=== PATIENT | male | born 1955 | race Caucasian/White ===

== ENCOUNTER → 2024-04-02 | Outpatient (CLI) | payer MEDICARE ==
--- NOTE | 2024-04-02 08:54 | CTL ---
EXAMINATION TYPE: CT Low Dose Lung DATE OF EXAM: 04/02/2024 8:42 AM COMPARISON: None. CLINICAL INDICATION: Male, 68 years old with history of Z12.2 LUNG CA SCR F17.210 FORMER SMOKER; Form er smoker., history of tobacco use. TECHNIQUE: Multiple axial non-contrast scans were obtained from approximately the lung apices through the upper abdomen. Coronal and sagittal reformatted images were obtained. Low dose technique was uti lized. MIP were created on a separate workstation and submitted for review. CT DLP: 96.5 mGycm, Automated exposure control for dose reduction was used. CT Contrast: Contrast used: None Oral contrast used: None FINDINGS: Lack of intravenous contrast and low dose technique limits the evaluation of the vascular and soft ti ssue structures. LUNGS: No evidence of pulmonary fibrosis. No evidence of focal consolidation, pneumothorax or pleural effusion. Centrilobular emphysema changes. Nodules: RUL: None. RML: None. RLL: None. CONNER: None. LLL: 5 mm series 5 image 32 possibly representing scarring or calcified granuloma. AIRWAY: Patent and unremarkable. HEART: Size within normal limits.Atherosclerosis of the arterial vasculature. MEDIASTINUM: No gross evidence of adenopathy. Partially calcified lymph node in the right suprahilar region. VASCULATURE: No aortic aneurysm. MUSCULOSKELETAL: No acute osseous abnormalities SOFT TISSUES/LYMPH NODES: Unremarkable. LOWER NECK: No significant findings. UPPER ABDOMEN: Calcified granulomas in the spleen and liver. IMPRESSION: 1. No clinically significant pulmonary nodules. 2. Mild to moderate emphysema. CT LUNG RAD AND CT CHEST RECOMMENDATION: Lung-Rad 2 Benign Appearance or Behavior: Continue annual sc reening with LDCT in 12 months. S Modifier (other clinically significant findings): None Recommend smoking cessation (if current smoker), or continuation of smoking cessation (if prior smoke r). Annual screening for lung cancer with low-dose computed tomography is recommended in adults ages 55 to 77 years who have a 30 pack-year smoking history and currently smoke or have quit within the pa st 15 years. Screening should be discontinued once a person has not smoked for 15 years or develops a health problem that substantially limits life expectancy or the ability or willingness to have curat booker lung surgery. Lung rads 2021 [email or web address] [facility], , 04/02/2024 8:52 AM
== END | disposition home or self-care (01) ==
LOC: RADCTMAIN 08:13
PROVIDERS: ATTEND Emergency Medicine
DX: Z12.2 Encounter for screening for malignant neoplasm of respiratory organs (principal); J43.2 Centrilobular emphysema; F17.210 Nicotine dependence, cigarettes, uncomplicated
CPT/HCPCS: 71271

== ENCOUNTER → 2024-07-17 | Outpatient (CLI) | payer MEDICARE ==
--- NOTE | 2024-07-18 08:13 | PE ---
EXAMINATION TYPE: PET CT fusion skull to thigh DATE OF EXAM: 07/17/2024 CLINICAL HISTORY: Prostate cancer. TECHNIQUE: Following the intravenous administration of 5.97 mCi of Ga-68 PSMA Illucix, whole body i mages are performed from the top of the skull to the midthigh. Images are reviewed on the computer i n the coronal, axial, and sagittal planes. Reconstructed rotating images are created on independent workstation and reviewed on the computer. A non-contrast CT is performed in conjunction with the PE T scan. COMPARISON: None. FINDINGS: HEAD AND NECK: No suspicious radiotracer uptake. CHEST, MEDIASTINUM, AND HILAR REGION: No suspicious radiotracer uptake. ABDOMEN AND PELVIS: Prostate gland is normal in size. Increased radiotracer uptake in the prostate gl and involving the left aspect is noted. No definitive additional areas of abnormal radiotracer uptake identified. OSSEOUS STRUCTURES: No definitive areas of abnormal radiotracer uptake. OTHER CT: Bilateral aphakia is present. Moderate calcified plaque bilateral carotid bulb level is see n. Mild to moderate underlying emphysematous change is present greatest in the upper lungs. There is severe three-vessel coronary artery calcification and/or stents. Bilateral subareolar gynecomastia is noted. Multiple round calcifications throughout the spleen are seen. A few calcifications throughout the gricel er are present. Findings are consistent with product of old granulomatous disease. Sigmoid colonic di verticula are identified. There is disc space narrowing and facet arthropathy in the lower lumbar spi ne. IMPRESSION: Increased radiotracer uptake left aspect of the prostate gland is suspicious and should b e correlated with prostate MRI and/or biopsy results. No suspicious adenopathy or metastatic disease seen. [facility], , 07/18/2024 8:11 AM
== END | disposition home or self-care (01) ==
LOC: RADPETMAIN 10:09
PROVIDERS: ATTEND Urology
DX: C61 Malignant neoplasm of prostate (principal)
CPT/HCPCS: 78815; A9587

== ENCOUNTER → 2024-08-11 | Outpatient (CLI) | payer MEDICARE ==
[2024-08-11 18:18] LABS: Basophils # (A) 0.06 X 10*3/uL (0.00-0.10); Basophils % (A) 0.7 %; Eosinophils # (A) 0.09 X 10*3/uL (0.04-0.35); Eosinophils % (A) 1.1 %; HCT 39.5 % (39.6-50.0); HGB 13.2 g/dL (13.0-17.0); Lymphocytes # (A) 1.67 X 10*3/uL (0.90-5.00); Lymphocytes % (A) 20.4 %; MCH 33.7 pg (27.0-32.0); MCHC 33.4 g/dL (32.0-37.0); MCV 100.8 FL (80.0-97.0); Mean Platelet Volume 8.9 FL (9.5-12.2); Monocytes # (A) 1.34 X 10*3/uL (0.20-1.00); Monocytes % (A) 16.4 %; NRBC Per 100 WBC 0 X 10*3/uL (0.00-0.01); Neutrophils # (A) 4.98 X 10*3/uL (1.80-7.70); Neutrophils % (A) 60.8 %; Platelet Count 248 X 10*3/uL (140-440); RBC 3.92 X 10*6/uL (4.40-5.60); RDW 13.9 % (11.5-14.5); WBC 8.19 X 10*3/uL (4.50-10.00)
[2024-08-11 22:18] LABS: Appearance,Urine Clear (Clear); Bilirubin,Urine Small (Negative); Blood,Urine Negative (Negative); Color,Urine Dark Yellow (Yellow); Ketones,Urine Trace (Negative); Nitrite,Urine Negative (Negative); PH, Urine 6.5; Specific Gravity,Urine 1.018 (1.001-1.030); Urobilinogen,Urine 0.2 E.U./DL
[2024-08-11 23:31] LABS: BUN/Creat Ratio 9.45 Ratio (12.00-20.00); Blood Urea Nitrogen 10.4 mg/dL (9.0-27.0); Carbon Dioxide 24.5 mmol/L (21.6-31.8); Chloride 100 mmol/L (96-109); Glucose 92 mg/dL (70-110); Potassium 4.6 mmol/L (3.5-5.5); Sodium 137 mmol/L (135-145)
== END | disposition home or self-care (01) ==
LOC: LABPAT 13:57
PROVIDERS: ATTEND Urology
DX: Z01.812 Encounter for preprocedural laboratory examination (principal); C61 Malignant neoplasm of prostate
CPT/HCPCS: 36415; 80048; 81003; 85025; 86850; 86900; 86901; 87086

== ENCOUNTER 2024-08-20 09:41 | Day surgery (SDC) | payer MEDICARE ==
--- NOTE | 2024-08-20 07:31 | P.HPIHPCON ---
History of Present Illness H&P Date: 08/20/24 Chief Complaint: Prostate cancer This is a 68-year-old male with history of [place] 8 prostate cancer. Option of radiation therapy versus robotic radical prostatectomy was discussed with him in detail. He agreed to proceed with robotic radical prostatectomy. He is aware o f the risk which include but not limited to bleeding, infection, urinary incontinence, erectile dysfunction. Injury of nearby organs was also discussed. Risk of cancer recurrence and the need for additional treatments was discussed. He understood all the risk and agreed to proceed Consent for Procedure: I have explained the operation/procedure to the patient, including the risks, benefits, side effects, alternative therapies (including not receiving the proposed treatment or service), the likelihood of the patient achieving his/her goals, and potential recuperation problems for the procedure/sedation/analgesia, as well as any blood products, if indicated. I also explained to the patient the risks, benefits and side effects of the alternatives, as well as the risks related to not receiving the proposed procedure, care, treatment, or services. Past Medical History Past Medical History: Hypertension, Prostate Disorder Additional Past Medical History / Comment(s): shingles 2023, prostate cancer History of Any Multi-Drug Resistant Organisms: None Reported Additional Past Surgical History / Comment(s): prostate biospy July 2024, Lt. hand trigger finger surgery, colonoscopy Past Anesthesia/Blood Transfusion Reactions: No Reported Reaction Smoking Status: Former smoker - Past Family History Mother Additional Family Medical History / Comment(s): emphysema Father Family Medical History: Cancer Additional Family Medical History / Comment(s): throat cancer Sister(s) Family Medical History: Cancer Additional Family Medical History / Comment(s): liver cancer Medications and Allergies Home Medications Medication Instructions Recorded Confirmed Type Acetaminophen Tab [Tylenol Tab] 500 mg PO Q6H 08/18/24 08/18/24 History Losartan Potassium 1 tab PO DAILY 08/18/24 08/18/24 History Multivitamin [Multivitamins Adult 1 tab PO DAILY 08/18/24 08/18/24 History Gummies] Allergies Allergy/AdvReac Type Severity Reaction Status Date / Time No Known Allergies Allergy Verified 08/18/24 08:57 Surgical - Exam - General no distress, no pain - Eyes normal ocular movement, no pale - ENT normal nares, normal mucosa - Respiratory normal expansion, normal respiratory effort - Abdomen Abdomen: soft, non tender, no distended - Psychiatric oriented to time, oriented to person, oriented to place Assessment and Plan Assessment: OR for robotic radical prostatectomy with bilateral pelvic lymph node dissection
[2024-08-20] MEDS ORDERED: LIDOCAINE 1% (10MG/ML) FOR IV START INTRADERMA PRN (10:20)
[2024-08-20] MEDS ORDERED: HYDROmorphone 0.5 MG/0.5 ML SYRINGE IVP PRN (10:20)
[2024-08-20] MEDS: IV FLUID CONTINUATION 1,000 ML IV ONE ×4 (10:30)
[2024-08-20] MEDS: LACTATED RINGERS 1,000 ML IV SCH (11:10)
[2024-08-20] MEDS: DEXAMETHASONE SOD PHOSPHATE 4 MG/ML 1 ML VIAL IV ONE (11:12)
[2024-08-20] MEDS: ONDANSETRON 4 MG/2 ML VIAL IVP ONE (11:12)
[2024-08-20] MEDS: MIDAZOLAM 2 MG/2 ML VIAL IV ONE (11:15)
[2024-08-20] MEDS: fentaNYL (PF) 50 MCG/ML 2 ML AMP IVP PRN (11:15)
[2024-08-20] MEDS ORDERED: SODIUM CHLORIDE 0.9% (PF) 10 ML VIAL ONE (12:55)
[2024-08-20] MEDS ORDERED: ROCURONIUM 10 MG/ML (5 ML VIAL) IV ONE (12:55)
[2024-08-20] MEDS ORDERED: GLYCOPYRROLATE 0.2 MG/ML 2 ML VIAL ONE (12:55)
[2024-08-20] MEDS ORDERED: HEPARIN SODIUM,PORCINE 5,000 UNIT/ML 1 ML VIAL ONE (12:55)
[2024-08-20] MEDS ORDERED: ONDANSETRON 4 MG/2 ML VIAL ONE (12:55)
[2024-08-20] MEDS ORDERED: KETAMINE HCL IN 0.9 % NACL 50 MG/5 ML SYRINGE ONE (12:55)
[2024-08-20] MEDS ORDERED: KETOROLAC 15 MG/ML 1 ML VIAL ONE (12:55)
[2024-08-20] MEDS ORDERED: SUCCINYLCHOLINE CHLORIDE 200 MG/10 ML VIAL IV ONE (12:55)
[2024-08-20] MEDS ORDERED: ROPIVACAINE 5 MG/ML 30 ML VIAL ONE (12:55)
[2024-08-20] MEDS ORDERED: PROPOFOL 10 MG/ML 20 ML VIAL IV ONE (12:55)
[2024-08-20] MEDS ORDERED: MIDAZOLAM 2 MG/2 ML VIAL ONE (12:55)
[2024-08-20] MEDS ORDERED: HYDROmorphone (PF) 1 MG/ML ONE (12:55)
[2024-08-20] MEDS ORDERED: NEOSTIGMINE 1 MG/ML 10 ML VIAL ONE (12:55)
[2024-08-20] MEDS ORDERED: fentaNYL (PF) 50 MCG/ML 2 ML AMP ONE (12:55)
[2024-08-20] MEDS ORDERED: DEXAMETHASONE SOD PHOSPHATE 4 MG/ML 1 ML VIAL ONE (12:55)
[2024-08-20] MEDS ORDERED: LIDOCAINE 1% INJ 10MG/ML (20 ML MDV) ONE (12:55)
[2024-08-20] MEDS: ceFAZolin 2 GM in DEXTROSE 5% IN WATER 50 ML IVPB PRN (13:00)
[2024-08-20] MEDS ORDERED: ONDANSETRON 4 MG/2 ML VIAL IVP PRN (13:02)
[2024-08-20] MEDS: BUPIVACAINE (PF) 0.25% 30 ML VIAL SQ ONE ×2 (13:38→15:45)
[2024-08-20] MEDS: LACTATED RINGERS 1,000 ML IV ONE (14:36)
--- NOTE | 2024-08-20 15:33 | P.ANPRN ---
Procedure Note - Anesthesia - Nerve Block Performed Bilateral Erector Spinae Single Time Out Performed: Yes (1115) Date of Procedure: 08/20/24 Procedure Start Time: 11:16 Procedure Stop Time: 11:21 Location of Patient: PreOp Indication: Acute Post-Operative Pain, Requested by Surgeon Specifically requested for management of pain by : Grzegorz Sinha Sedation Type: Sedate with meaningful contact maintained Preparation: Sterile Prep Position: Prone Catheter: None Needle Types: Pajunk Needle Gauge: 21 Ultrasound used to visualize needle placement: Yes Ultrasound used to observe medication spread: Yes Injectate: 0.5% Ropivacaine (see comment for volume) (15cc+10cc nacl pf each side) Blood Aspirated: No Pain Paresthesia on Injection Noted: No Resistance on Injection: Normal Image Stored and Saved: Yes Events: Uneventful and Well Tolerated
--- NOTE | 2024-08-20 15:36 | P.OP ---
Date of Procedure: 08/20/24 Preoperative Diagnosis: Prostate cancer Postoperative Diagnosis: Same Procedure(s) Performed: Robotic radical prostatectomy with bilateral pelvic lymph node dissection Implants: None Anesthesia: LOA Surgeon: Grzegorz Sinha Estimated Blood Loss (ml): 50 Pathology: other (Prostate, bilateral seminal vesicles, bilateral pelvic nodes) Condition: stable Disposition: PACU Indications for Procedure: This is a 68-year-old male with history of [place] 8 prostate cancer. Option of radiation therapy versus robotic radical prostatectomy was discussed with him in detail. He agreed to proceed with robotic radical prostatectomy. He is aware of the risk which include but not limited to bleeding, infection, urinary incontinence, erectile dysfunction. Injury of nearby organs was also discussed. Risk of cancer recurrence and the need for additional treatments was discussed. He understood all the risk and agreed to proceed Description of Procedure: After preoperative antibiotics were started, the patient was taken to the opera ting room. Anesthesia was induced and the patient was placed in a supine position, with adequate padding of the pressure points, shoulders, back, legs and arms. He was then prepped and draped in the standard fashion. A critical pause was performed using two patient identifiers. A 16F celaya catheter was placed to gravity drainage. A pneumo-peritoneum was created with placement of a Veress needle to 20 mm Hg without complication, and a 8 Fr trocar was placed above the umbillicus. Under direct vision a 8mm robotic ports was placed lateral to each rectus slightly below the camera port. The left iliac fossa 8mm port was placed. The right operator assistant i cementing right iliac fossa 12mm port and right paramedian 5mm portwere placed. After the patient was placed in the trendelenberg position, the robot was then docked to the 8mm robotic ports and then each robotic arm and tower was checked in relation to the patient's legs and hands to avoid inadvertent compression. The peritoneal cavity was inspected. An inverted U-shaped incision began laterally to the left medial umbilical ligament and extended high across the midline to the right umbilical ligament. The limbs of the "U" extended to the level of the vasa on both sides. We next developed the preperitoneal space and the space of Retzius. Cautery was used to dissected the bladder away from the prostate. After the anterior bladder neck was incised and the bladder entered the the posterior bladder neck was exposed and the ureteral orifces identified. The posterior bladder neck was then incised and dissected away from the prostate. The vas and the seminal vesicles were now exposed and dissected to their insertions into the prostate and were not spared. The posterior layer of the Denonvillier's fascia was incised to enter saira the plane between prostate and perirectal fat. Each lateral pedicle was controlled with vessel sealer's. No nerve preservation was performed on the left, complete nerve preservation was performed on the rig ht. the puboprostatic ligament was incised where it inserted into the apex of the prostate and a plane between urethra and dorsal venous complex developed to expose the anterior urethral surface. The anterior wall of the urethra was transected with the cut setting a few millimeters distal to the apex of the prostate. The dorsal vein was ligated using 3-0 V lock bilateral obturator and external iliac lymph node packets were carefully dissected after careful visualization of the hypogastric artery and obturator nerve. There was careful attention paid to hemostasis with judicious use of cautery. The urethrovesical anastomosis was performed . the posterior denovillers was reapproximated using 3-0 V lock. A 6 and 6 inch 3-0 V-Lock suture was used to anastomose the urethra and bladder, starting at the 6:00 posterior position. Mucosa was secured in every stitch, to ensure a mucosa to mucosa anastomosis. The stitch was regularly cinched and the anastomosis tightened. Care was taken to not violate the ureteral orifices. The Celaya catheter was advanced, the bladder filled, and the anastomosis was tested, as described above. Anastomsis was watertight at 200 mL The periumbilical fascia was closed with 1-0-PDS suture in figure of eight fashion. All ports were closed with a subcuticular 4-0 monocryl and Dermabond. Sponge, instrument, and needle counts were correct at the end of the case x2. All specimens including prostate and lymph nodes were sent to pathology for diagnosis and will be available in a week. The patient tolerated the surgery well and without complication. He awoke without difficulty and was taken to the recovery room in stable condition
[2024-08-20] MEDS: HEPARIN SODIUM,PORCINE 5,000 UNIT/ML 1 ML VIAL SQ SCH (16:06)
[2024-08-20] MEDS: LOSARTAN 50 MG TAB PO STA (19:11)
[2024-08-20] MEDS: D5-0.45% NACL WITH KCL 20MEQ/L 1,000 ML IV SCH (22:55)
[2024-08-21] MEDS: KETOROLAC 15 MG/ML 1 ML VIAL IVP PRN (00:44)
[2024-08-21] MEDS: ACETAMINOPHEN TAB 500 MG TAB PO PRN (06:26)
[2024-08-21] MEDS: LOSARTAN 50 MG TAB PO SCH (08:07)
--- NOTE | 2024-08-21 08:15 | P.DS ---
Providers Date of admission: The patient underwent a RALP by dr Sinha yesterday without issues. HE did well overnite. VSS u/o good Pain undercontrol He will be d/cd home today with the celaya catheter.. Tylenol or motrin for pain. He will fu with Dr Sinha in 10day Path is pending Condition is good Attending physician: Grzegorz Sinha MD Primary care physician: Srini Mccray MD Plan - Discharge Summary Discharge Rx Participant: No New Discharge Prescriptions: No Action Multivitamin [Multivitamins Adult Gummies] 1 tab PO DAILY Acetaminophen Tab [Tylenol Tab] 500 mg PO Q6H Losartan Potassium 1 tab PO DAILY Discharge Medication List Acetaminophen Tab [Tylenol Tab] 500 mg PO Q6H 08/18/24 [History] Losartan Potassium 1 tab PO DAILY 08/18/24 [History] Multivitamin [Multivitamins Adult Gummies] 1 tab PO DAILY 08/18/24 [History] Follow up Appointment(s)/Referral(s): Grzegorz Sinha MD [STAFF PHYSICIAN] - 10 Days (home with dafne)
[2024-08-21 09:13] VITALS: BP 145/84; PULSE 87; RESP 18; TEMP 97.6
== END 2024-08-21 13:28 | disposition home or self-care (01) ==
LOC: OR 09:41 → 4SSUR 16:21 → OR 08-21 13:28
PROVIDERS: ATTEND Urology
DX: C61 Malignant neoplasm of prostate (principal); G89.18 Other acute postprocedural pain; I10 Essential (primary) hypertension; Z79.899 Other long term (current) drug therapy; Z87.891 Personal history of nicotine dependence; Z80.0 Family history of malignant neoplasm of digestive organs
CPT/HCPCS: 38571; 55866; 64468; 88307; 88309; J2250; J0330; J1644 ×2; J1100; J2710; J0690; J2405; J2003; J3010; J1171; J2795; J1885 ×2; J2704; J0665; J1596

== ENCOUNTER → 2024-10-07 | Outpatient (CLI) | payer MEDICARE | END | disposition home or self-care (01) | LOC: LABWHC1 10:04 | PROVIDERS: ATTEND Urology | DX: C61 Malignant neoplasm of prostate (principal) | CPT/HCPCS: 36415; 84153 ==